=== PATIENT | male | born 1990 | race Caucasian/White ===

== ENCOUNTER 2021-11-06 15:41 | Emergency (ER) | payer SELFPAY ==
[2021-11-06 15:46] VITALS: BP 162/95; PULSE 58; RESP 20; TEMP 37.2; O2SAT 99
--- NOTE | 2021-11-06 16:39 | ED.GENADULT ---
HPI - General Adult General Chief complaint: Dental/Oral Stated complaint: spots on neck Time Seen by Provider: 11/06/21 16:35 Source: patient, RN notes reviewed and old records reviewed Mode of arrival: ambulatory Limitations: no limitations History of Present Illness HPI narrative: 31 year old male who presents to [facility] care with complaints of rash to his posterior neck that is scabbed denies any known injury to neck area and also states red palpable lesion to his right anterior neck with no induration. Patient also reports concern over his upper and bottom teeth which are broken off several missing and noted dental caries with some discomfort verbalized, chronic issue with need for removal of what remaining teeth present. Patient has not tried any OTC medications for his discomfort or for his wound. He is afebrile. MD complaint: dental pain, skin lesions Severity scale (1-10): 5 Related Data Allergies Allergy/AdvReac Type Severity Reaction Status Date / Time No Known Allergies Allergy Verified 11/06/21 16:08 Review of Systems Review of Systems: CONSTITUTIONAL: Denies fever, chills, or sweats. EYES: Denies visual changes, redness, or discharge. ENT: Denies rhinorrhea, congestion, sore throat, or otalgia.positive for chronic dental caries and poor dental care with multiple missing teeth and broken teeth CARDIOVASCULAR: Denies chest pain, palpitations, or edema. RESPIRATORY: Denies cough or dyspnea. GASTROINTESTINAL: Denies abdominal pain, nausea, vomiting, or diarrhea. GENITOURINARY: Denies dysuria or hematuria. SKIN: Denies rash or itching.small red lesion with no induration to right anterior neck and scabbed wound to posterior neck, no drainage noted MUSCULOSKELETAL: Denies back pain, joint pain, or myalgia. NEUROLOGIC: Denies headache, numbness, or weakness. PSYCHIATRIC: Denies anxiety or depression. 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 There is no relevant family history pertinent to the presenting complaint Exam Narrative: GENERAL: Well-appearing, fair-nourished, and in no acute distress. HEAD: Normocephalic, atraumatic. EYES: PERRLA and EOMI. ENT: Nares clear, no rhinorrhea or epistaxis. Mucous membranes moist.TM's normal with good light reflex, throat pink with no exudates or tonsil swelling.numerous broken missing teeth and broken teeth poor dentition, no specific abscess formation noted, no trismus, no NECK: Supple. no lymphadenopathy CHEST: Clear to auscultation. No respiratory distress.SAO2 99% on room air HEART: Regular rate and rhythm. No murmur heard. Normal peripheral pulses. ABDOMEN: Soft, nontender, nondistended, normal active bowel sounds. EXTREMITIES: Normal range of motion. No edema. SKIN: Warm, dry, no rash. small red lesion anterior neck no induration , scabbed rash type area to the posterior neck no drainage. NEURO: No focal deficits. Alert and oriented x3. Course Course Level of Care: Express Care Visit Vital Signs Vital signs: Vital Signs Temperature 37.2 C 11/06/21 15:46 Pulse Rate 58 L 11/06/21 15:46 Respiratory Rate 20 11/06/21 15:46 Blood Pressure 162/95 H 11/06/21 15:46 Pulse Oximetry 99 11/06/21 15:46 Oxygen Delivery Room Air 11/06/21 15:46 Temperature 37.2 C 11/06/21 15:46 Pulse Rate 58 L
--- NOTE | 2021-11-06 16:51 | ED.GENADULT ---
HPI - General Adult General Chief complaint: Dental/Oral Stated complaint: spots on neck Time Seen by Provider: 11/06/21 16:35 Source: patient, RN notes reviewed and old records reviewed Mode of arrival: ambulatory Limitations: no limitations History of Present Illness HPI narrative: 31 year old male presents Related Data Allergies Allergy/AdvReac Type Severity Reaction Status Date / Time No Known Allergies Allergy Verified 11/06/21 16:08 [facility] Social History Social History (Updated 11/08/21 @ 18:53 by Mag Tripp NP) Smoking status: Current every day smoker Tobacco type: cigarettes Alcohol intake: former Substance use type: marijuana Other substance usage details: 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 Gender identity (if verbalized by the patient): Male Course Vital Signs Vital signs: Vital Signs Temperature 37.2 C 11/06/21 15:46 Pulse Rate 58 L 11/06/21 15:46 Respiratory Rate 20 11/06/21 15:46 Blood Pressure 162/95 H 11/06/21 15:46 Pulse Oximetry 99 11/06/21 15:46 Oxygen Delivery Room Air 11/06/21 15:46 Temperature 37.2 C 11/06/21 15:46 Pulse Rate 58 L 11/06/21 15:46 Respiratory Rate 20 11/06/21 15:46 Blood Pressure 162/95 H 11/06/21 15:46 Pulse Oximetry 99 11/06/21 15:46 Oxygen Delivery Room Air 11/06/21 15:46 Medical Decision Making Vital Signs Vital Signs: Vital Signs Temperature 37.2 C 11/06/21 15:46 Pulse Rate 58 L 11/06/21 15:46 Respiratory Rate 20 11/06/21 15:46 Blood Pressure 162/95 H 11/06/21 15:46 Pulse Oximetry 99 11/06/21 15:46 Oxygen Delivery Room Air 11/06/21 15:46 Temperature 37.2 C 11/06/21 15:46 Pulse Rate 58 L 11/06/21 15:46 Respiratory Rate 20 11/06/21 15:46 Blood Pressure 162/95 H 11/06/21 15:46 Pulse Oximetry 99 11/06/21 15:46 Oxygen Delivery Room Air 11/06/21 15:46 Discharge Plan Discharge Clinical Impression: Dentalgia, Skin and subcutaneous tissue disease, Dental caries Patient Disposition: Home, Self-Care Condition: Stable Instructions: Antibiotic Form Additional Instructions: Avoid temperature extremes May apply heat or ice to the face Gentle brushing and flossing Antibiotic as directed Tylenol for lesser pain Use ibuprofen regularly Follow-up with the dentist as soon as possible--see the list provided Clean skin areas twice daily apply Bactroban ointment as ordered If your symptoms persist, change or worsen significantly before you can contact your personal physician then please, without delay, go to the emergency department for further evaluation. Follow-up with PCP in 7-10 days or sooner if needed Follow up with PCP soon in regards to your blood pressure which is elevated above threshold for referral. Blood pressure above 120/80 may indicate pre-hypertension. Prescriptions: New penicillin V potassium 500 mg tablet 500 mg PO BID 10 Days Qty: 20 0RF mupirocin 2 % ointment 1 applic topical BID Qty: 22 0RF Rx Instructions: apply to tissue Follow-up/Referrals: PHYSICIAN,MICROFILM MOUNTER [Primary Care Provider] - Stand Alone Forms: Work/School Release IP Time of Disposition: 16:55
== END 2021-11-06 17:08 | disposition home or self-care (01) ==
PROVIDERS: Emergency Provider Registered Nurse
DX: K04.7 Periapical abscess without sinus (principal); L98.9 Disorder of the skin and subcutaneous tissue, unspecified; F17.210 Nicotine dependence, cigarettes, uncomplicated; F12.90 Cannabis use, unspecified, uncomplicated
CPT/HCPCS: 99213; G0463